=== PATIENT | male | born 1975 | race Caucasian/White ===

== ENCOUNTER 2018-02-04 10:21 | Day surgery (SDC) | payer OTHER ==
[2018-01-31 10:25] LABS: HEMATOCRIT 50.1 % (37.9-51.0); MEAN CORPUSCULAR HEMOGLOBIN 28.7 pg (27.0-33.4); MEAN CORPUSCULAR VOLUME 85 fl (80-97); PLATELET COUNT 284 10^3/uL (150-450); RED BLOOD COUNT 5.93 10^6/uL (4.35-5.55); WHITE BLOOD COUNT 7.1 10^3/uL (4.0-10.5)
[2018-01-31 10:45] LABS: PROTHROMBIN TIME 12.6 SEC (11.4-15.4)
[2018-01-31 10:46] LABS: PARTIAL THROMBOPLASTIN TIME 28.9 SEC (23.5-35.8)
[2018-01-31 10:50] LABS: APPEARANCE,URINE CLEAR; BILIRUBIN,URINE NEGATIVE (NEGATIVE); COLOR,URINE YELLOW; GLUCOSE, URINE NEGATIVE (NEGATIVE); KETONES,URINE NEGATIVE (NEGATIVE); LEUKOCYTE ESTERASE,URINE NEGATIVE (NEGATIVE); NITRITE,URINE NEGATIVE (NEGATIVE); PROTEIN,URINE NEGATIVE (NEGATIVE); URINE SPECIFIC GRAVITY 1.023; UROBILINOGEN,URINE NEGATIVE mg/dL (<2.0)
--- NOTE | 2018-01-31 13:42 | EKG REPORT ---
SEVERITY:- BORDERLINE ECG - SINUS RHYTHM BORDERLINE INFERIOR Q WAVES : Confirmed by: Lucas Tejada MD 31-Jan-2018 13:41:28
[~2018-02-04 10:21] MED LIST: CEFAZOLIN 1 GM/D5W RTU 1 GM/50 ML RTUPB IV PRN; LACTATED RINGERS 1000 ML IV PRN; LIDOCAINE 0.5% INJ-PF (5 MG/ML) 50 ML SDV SUBCUT PRN
--- NOTE | 2018-02-04 11:06 | RADIOLOGY REPORT (SQ) ---
EXAM DESCRIPTION: CHEST SINGLE VIEW COMPLETED DATE/TIME: 02/04/2018 10:53 am REASON FOR STUDY: PREOP COMPARISON: None. EXAM PARAMETERS: NUMBER OF VIEWS: One view. TECHNIQUE: Single frontal radiographic view of the chest acquired. RADIATION DOSE: NA LIMITATIONS: None. FINDINGS: LUNGS AND PLEURA: No opacities, masses or pneumothorax. No pleural effusion. MEDIASTINUM AND HILAR STRUCTURES: No masses. Contour normal. HEART AND VASCULAR STRUCTURES: Heart normal in size. Normal vasculature. BONES: No acute findings. HARDWARE: None in the chest. OTHER: No other significant finding. IMPRESSION: NO ACUTE RADIOGRAPHIC FINDING IN THE CHEST. TECHNICAL DOCUMENTATION: JOB ID: [id number] [employer]- All Rights Reserved Reading location - IP/workstation name: [email or web address]
[2018-02-04] MEDS ORDERED: BUPIVACAINE HCL 0.5%-EPI 1:200000 INJ/PF 30 ML VIAL ONE (11:33)
[2018-02-04] MEDS ORDERED: LIDOCAINE 1% INJ-PF (10 MG/ML) 30 ML SDV ONE (11:33)
[2018-02-04] MEDS ORDERED: FENTANYL CITRATE INJ/PF 100 MCG/2 ML AMPUL ONE (13:59)
[2018-02-04] MEDS ORDERED: MIDAZOLAM 2 MG/2 ML INJ ONE ×2 (13:59→14:00)
[2018-02-04] MEDS ORDERED: PROPOFOL INJ 200 MG/20 ML VIAL IV ONE (14:00)
[2018-02-04] MEDS ORDERED: SODIUM BICARBONATE 8.4% INJ 50 MEQ/50 ML DISP.SYRIN ONE (14:06)
[2018-02-04] MEDS ORDERED: FENTANYL CITRATE INJ/PF 100 MCG/2 ML AMPUL IV PRN ×3 (14:33)
[2018-02-04] MEDS ORDERED: PROMETHAZINE HCL INJ 25 MG/1 ML VIAL IV PRN ×2 (14:33)
[2018-02-04] MEDS ORDERED: MEPERIDINE HCL/PF INJ 25 MG/1 ML DISP.SYRIN IV PRN (14:33)
[2018-02-04] MEDS ORDERED: DIPHENHYDRAMINE HCL 50 MG/ML VIAL IV PRN (14:33)
[2018-02-04] MEDS ORDERED: OXYCODONE-ACETAMINOPHEN 5-325 MG TABLET PO PRN ×2 (14:33)
[2018-02-04] MEDS: FENTANYL CITRATE INJ/PF 100 MCG/2 ML AMPUL ONE ×2 (15:29→15:38)
[2018-02-04] MEDS ORDERED: CEFAZOLIN INJ 1 GM VIAL ONE (15:32)
[2018-02-04] MEDS ORDERED: HYDROCODONE/ACETAMINOPHEN 5-325 MG TABLET PO PRN (15:33)
--- NOTE | 2018-02-04 15:34 | RADIOLOGY REPORT (SQ) ---
EXAM DESCRIPTION: NO CHG FLUORO; THORACOLUMBAR SPINE AP/LAT COMPLETED DATE/TIME: 02/04/2018 3:20 pm REASON FOR STUDY: SPINAL STIMULATOR ASST WITH FLUORO IN OR M54.16 RADICULOPATHY, LUMBAR REGION COMPARISON: None. FLUOROSCOPY TIME: The 1.9 minutes 13 images saved to PACS. TECHNIQUE: Intra-operative images acquired during surgical procedure to evaluate progress. NUMBER OF IMAGES: 13 LIMITATIONS: None. FINDINGS: Placement of mid thoracic neurostimulator IMPRESSION: IMAGE(S) OBTAINED DURING PROCEDURE. COMMENT: Quality ID [id number]: Final reports for procedures using fluoroscopy that document radiation exp osure indices, or exposure time and number of fluorographic images (if radiation exposure indices are not available) Please consult full operative report of the attending physician for description of the procedure. TECHNICAL DOCUMENTATION: JOB ID: [id number] [employer]- All Rights Reserved Reading location - IP/workstation name: [email or web address]
--- NOTE | 2018-02-04 15:34 | RADIOLOGY REPORT (SQ) ---
EXAM DESCRIPTION: NO CHG FLUORO; THORACOLUMBAR SPINE AP/LAT COMPLETED DATE/TIME: 02/04/2018 3:20 pm REASON FOR STUDY: SPINAL STIMULATOR ASST WITH FLUORO IN OR M54.16 RADICULOPATHY, LUMBAR REGION COMPARISON: None. FLUOROSCOPY TIME: The 1.9 minutes 13 images saved to PACS. TECHNIQUE: Intra-operative images acquired during surgical procedure to evaluate progress. NUMBER OF IMAGES: 13 LIMITATIONS: None. FINDINGS: Placement of mid thoracic neurostimulator IMPRESSION: IMAGE(S) OBTAINED DURING PROCEDURE. COMMENT: Quality ID [id number]: Final reports for procedures using fluoroscopy that document radiation exp osure indices, or exposure time and number of fluorographic images (if radiation exposure indices are not available) Please consult full operative report of the attending physician for description of the procedure. TECHNICAL DOCUMENTATION: JOB ID: [id number] [employer]- All Rights Reserved Reading location - IP/workstation name: [email or web address]
[2018-02-04] MEDS: HYDROMORPHONE HCL INJ/PF 2 MG/ML AMPULE ONE ×2 (15:58→16:08)
[2018-02-04] MEDS ORDERED: ACETAMINOPHEN 100 ML IV ONE (15:59)
--- NOTE | 2018-02-04 16:09 | OPERATIVE REPORT E ---
Operative Report NAME: FIGUEROA CONTRERAS : 1975 AGE: 42Y DATE OF SURGERY: 02/04/2018 ROOM: PREOPERATIVE DIAGNOSIS: LUMBAR RADICULOPATHY, CHRONIC BACK PAIN SECONDARY TO DEGENERATIVE DISK AND JOINT DISEASE. POSTOPERATIVE DIAGNOSIS: LUMBAR RADICULOPATHY, CHRONIC BACK PAIN SECONDARY TO DEGENERATIVE DISK AND JOINT DISEASE. OPERATION: 1. Surgical implantation of right and left spinal cord stimulator electrodes using [employer] octrodes and implantation of a programmable rechargeable pulse generator. 2. Fluoroscopy for needle and lead placement and complex analysis and programming. SURGEON: ABDIEL NIÑO MD QI SPECIALIST: Dennis Ariza MD INDICATION: Successful outpatient trial of spinal cord stimulation for treatment of chronic intractable pain. ANESTHESIA: MAC. TISSUE REMOVED OR ALTERED: None. BLOOD LOSS: 10 mL. COMPLICATIONS: None. PROCEDURE NOTE: After obtaining informed consent, advising the patient of the risks and benefits including serious neurological injury, bleeding, infection, paralysis, allergic reaction, aggravation of pain, and , he was taken to the operating room and placed comfortably in the prone position. Monitors were applied per anesthesia. He was prepped with chlorhexidine with appropriate drying time prior to draping. Fluoroscopy was utilized to evaluate the spine. Junction of lumbar-thoracic region was identified. Counting down, suitable entrance site was identified with the plan for entrance at the T12-L1 interspace. The skin was anesthetized with 1% lidocaine, as well as was the skin over the pulse generator site over right gluteal region. Bupivacaine 0.25% and 0.50% was utilized as well with Epinephrine. Sharp and blunt dissection were performed in each region to create suitable working space and identification of the lumbar fascia in the midline region. Once a suitable working area was created, paraspinal musculature was anesthetized in the right and left region with an intent to enter at the selected entrance site as described above. Beginning on the left side, a 14 gauge Touhy needle was inserted under fluoroscopic guidance entering into the epidural space loss of resistance to saline technique. No heme, cerebrospinal fluid, or paresthesias were noted during needle placement. Electrode was placed easily. This was repeated on the right side. Leads were advanced up to the bottom of T8 with a parallel location just right and left of the midline at that level. The inferior *------* leads was in the mid region of T10 to the bottom region of T10. Trial stimulation was initiated and was found to be satisfactory. Decision was made to secure the leads. Pursestrings were placed around each needle with 0 Mersilene followed by distal stay suture. The left needle was removed first under fluoroscopic guidance with care being taken not to dislodge the electrodes. Once the stylet and the needle were removed, pursestring was removed. The anchor was placed and secured followed by securing of the anchor with the distal stay suture. This was then again repeated on the right side. Lead position was checked multiple times in the AP and lateral, and was always found to be satisfactory. No movement of leads occurred during securing of the anchors. The tunneling was then performed from the pulse-generator pocket to the midline. This was done easily after anesthetization of 1% lidocaine. The leads were then connected to the pulse generator with the left lead being in the 0 through 7 slot, and the left lead being in the 8 through 15 slot. The connectivity was checked. Impedance was satisfactory. Decision was made to complete the implant. Both wounds were copiously irrigated with Betadine-containing irrigation solution and hemostasis was checked and was felt to be satisfactory. Both wounds were then closed with interrupted inverted vertical mattress sutures using 3-0 Polysorb. The midline incision was closed with erica. The pulse-generator site was then closed with Dermabond tape followed by Dermabond cement. *------* sterile dressing with Telfa and Tegaderm were placed over the operative sites. He was then taken to the PACU for further postoperative care and monitoring. DICTATING PHYSICIAN: ABDIEL NIÑO M.D. [id number] Y#: [id number] ID: [id number] JOB#: [id number] ACCT: [id number] cc:ABDIEL NIÑO M.D. >
[2018-02-04 18:09] VITALS: BP 118/74
== END 2018-02-04 17:40 | disposition home or self-care (01) ==
LOC: OROUT 10:21
PROVIDERS: ATTEND Pain Medicine Interventional Pain Medicine
DX: M54.16 Radiculopathy, lumbar region (principal); M47.816 Spondylosis without myelopathy or radiculopathy, lumbar region; M51.36 Other intervertebral disc degeneration, lumbar region; M47.896 Other spondylosis, lumbar region; M54.5 Low back pain; G89.4 Chronic pain syndrome; E78.5 Hyperlipidemia, unspecified; E03.9 Hypothyroidism, unspecified; E11.9 Type 2 diabetes mellitus without complications; K21.9 Gastro-esophageal reflux disease without esophagitis; G47.30 Sleep apnea, unspecified; Z79.899 Other long term (current) drug therapy; Z79.891 Long term (current) use of opiate analgesic; Z87.11 Personal history of peptic ulcer disease
CPT/HCPCS: 63650; 63685; C1820; 1936; 36415; 71045; 72080; 81001; 85027; 85610; 85730; 93005; 93010; C1778; J0131; J0690; J1170; J2250; J2704; J3010; J3490